=== PATIENT | male | born 1995 | race Caucasian/White ===

== ENCOUNTER → 2020-07-31 | Outpatient (CLI) | payer OTHER ==
[2020-07-31 10:22] LABS: SPERM MORPHOLOGY SENT TO REFERENC LAB
[2020-07-31 11:12] LABS: SPERM CONCENTRATION 7.7 X10^6/mL (>12.0); SPERM PROGRESSION 2; TOTAL SPERM COUNT 21.6 X10^6 (>33.0)
== END ==
LOC: LAB 10:16
PROVIDERS: ATTEND Obstetrics & Gynecology
DX: N46.9 Male infertility, unspecified (principal)
CPT/HCPCS: 89320